=== PATIENT | female | born 1990 | race Caucasian/White ===

== ENCOUNTER → 2017-01-04 | Outpatient (CLI) | payer BC ==
--- NOTE | 2017-01-04 16:22 | DI ---
RIGHT WRIST, 01/04/2017 3:44 PM: Clinical History: Right wrist pain. Previous Exam: None at this facility. AP and lateral views are submitted. There is no acute soft tissue, osseous, or joint abnormality. Readin. Normal left wrist exam. 2. If symptoms persist at the affected site, then follow-up films are recommended in 7-10 days, sanket cially if there is a history of recent trauma to the area.
== END ==
LOC: MOB RAD 15:49
PROVIDERS: ATTEND Nurse Practitioner Family
DX: M25.531 Pain in right wrist (principal)
CPT/HCPCS: 73100

== ENCOUNTER → 2017-01-13 | Outpatient (CLI) | payer BC ==
[2017-01-13 11:33] LABS: HEMATOCRIT 40.7 % (37.0-47.0); HEMOGLOBIN 13.1 g/dL (12.0-16.0); MEAN CORPUSCULAR HEMOGLOBIN 26.8 PG (27-31); MEAN CORPUSCULAR HGB CONC 32.2 g/dL (33-37); MEAN CORPUSCULAR VOLUME 83.4 FL (81-99); MEAN PLATELET VOLUME 10.2 FL (7.4-12.2); RED BLOOD COUNT 4.88 10^6/uL (4.20-5.40)
[2017-01-13 11:44] LABS: BLOOD UREA NITROGEN 13 mg/dL (7-22); BUN/CREATININE RATIO 16.25 (6-20); CALCIUM 8.5 mg/dL (8.7-10.7); EST GLOMERULAR FILTRATION > 60 (>60 ml/min/1.73m(2)); SERUM ALBUMIN 3.9 g/dL (3.5-4.8)
== END ==
LOC: LAB 11:12
PROVIDERS: ATTEND Nurse Practitioner
DX: K51.90 Ulcerative colitis, unspecified, without complications (principal); K92.1 Melena; R10.84 Generalized abdominal pain; R11.0 Nausea
CPT/HCPCS: 36415; 80053; 85027; 87046; 87493

== ENCOUNTER → 2017-03-09 | Outpatient (CLI) | payer BC ==
--- NOTE | 2017-03-10 09:12 | DI ---
MRI UP EXTREMITY JNT W/O RINKU,03/09/2017 10:10 AM: Clinical History: Right wrist pain. Previous Exam: None at this facility. Findings: Multiplanar MR images are obtained through the right wrist without contrast. Bony alignment is anatomic. No fractures seen. Marrow signal is preserved. The extensor tendons are normal. The flexor tendons also appear normal. There is minimum prominence o f the median nerves within the carpal condyle. Is unremarkable. The carpal bones are within normal limits. There is some redundancy of the posterior scapholunate lig ament. Impression: 1. Possible mild inflammatory changes of the median nerve as it is slightly enlarged and edematous. C orrelate with any history of carpal tunnel syndrome. 2.Slightly widening of the scapholunate interval with some redundancy of the posterior scapholunate l igament most consistent with a prior tear.
== END ==
LOC: MRI 10:07
PROVIDERS: ATTEND Orthopaedic Surgery
DX: M25.531 Pain in right wrist (principal)
CPT/HCPCS: 73221

== ENCOUNTER 2017-04-18 11:23 | Day surgery (SDC) | payer BC ==
[~2017-04-18 11:23] MED LIST: LIDOCAINE W/ SODIUM BICARB 0.5 ML SYR ONE; Lactated Ringers 1,000 ML PRIMARY IV ONE; ceFAZolin Inj 2gm (Premix) 50 ML IV ONE
[2017-04-18 11:43] LABS: URINE SPECIFIC GRAVITY - MAN 1.028
[2017-04-18] MEDS ORDERED: LIDOCAINE 2%/ EPI 1:200,000 - 20 ML VIAL ONE (12:01)
[2017-04-18] MEDS ORDERED: MIDAZOLAM 5 MG/1 ML ONE (12:01)
[2017-04-18] MEDS ORDERED: MEPIVACAINE HCL/PF 20 MG/1 ML IV ONE (12:01)
[2017-04-18] MEDS ORDERED: fentaNYL Inj 100 MCG/2 ML VIAL ONE (12:01)
--- NOTE | 2017-04-18 12:19 | CRNA.PROCE ---
Nerve Block Documentation - - Safety Measures: Time Out Taken, Site Verified - - Type of Nerve Block Used: Right Infraclavicular Block Position for Nerve Block: Supine Moniters Used During Block: EKG, SPO2, NIBP Oxygen Sumpplented: Yes Sedation Used - Enter Amount in Comment Field: Midazolam (mg): Yes (2mg iv), Fentanyl (mcg): Yes (50mcg iv) Skin Prep Used: ChloroPrep Technique: Nerve Stimulator Nerve Block Needle Used: 80 mm ProBlk II Stimulation Hz: 1.0 Stimulation Staring mA: 1.2 Stimulation Ending mA: 0.4 Local Anesthetic - Enter Amt in Comment Field: 2 % Xylocaine with Epinephrine 1: 200,000 (mL): Yes (20ml), 2 % Mepivacaine (mL): Yes (20ml)
[2017-04-18] MEDS ORDERED: KETOROLAC 30 MG/1 ML VIAL ONE ×2 (12:41→14:13)
[2017-04-18] MEDS ORDERED: BUPivacaine Inj 0.25% PF - 10ml vial ONE (13:02)
[2017-04-18] MEDS ORDERED: NORMAL SALINE 10 ML SYRINGE FLUSH IVP PRN (14:34)
[2017-04-18] MEDS ORDERED: CALCIUM CARBONATE 500 MG (TUMS) CHEWABLE TABLET PO PRN (14:34)
[2017-04-18] MEDS ORDERED: HYDROmorphone 2 MG/1 ML IVP PRN (14:34)
[2017-04-18] MEDS ORDERED: IBUPROFEN 400 MG TABLET PO PRN (14:34)
[2017-04-18] MEDS ORDERED: oxyCODONE-ACETAMINOPHEN 5-325 TAB PO PRN (14:34)
[2017-04-18] MEDS ORDERED: BISACODYL 10 MG SUPPOSITORY RECTAL PRN (14:34)
[2017-04-18] MEDS ORDERED: BISACODYL 5 MG TABLET PO PRN (14:34)
[2017-04-18] MEDS ORDERED: Prochlorperazine Tab 10 MG TAB PO PRN (14:34)
[2017-04-18] MEDS ORDERED: ACETAMINOPHEN 325 MG TABLET PO PRN (14:34)
[2017-04-18] MEDS ORDERED: ONDANSETRON 4 MG/2 ML VIAL IVP PRN (14:34)
[2017-04-18] MEDS ORDERED: Ondansetron ODT Tab 8 MG TAB PO PRN (14:34)
[2017-04-18] MEDS ORDERED: MAG HYDROX/AL HYDROX/SIMETH 30 ML SUSP PO PRN (14:34)
[2017-04-18] MEDS ORDERED: diphenhydrAMINE 25 MG CAPSULE PO PRN (14:34)
[2017-04-18] MEDS ORDERED: Lactated Ringers 1,000 ML PRIMARY IV SCH (14:45)
[2017-04-18 15:24] VITALS: TEMP 98
[2017-04-18 15:27] VITALS: RESP 14
== END 2017-04-18 14:52 | disposition home or self-care (01) ==
LOC: SDSC 11:23
PROVIDERS: ATTEND Orthopaedic Surgery
DX: M65.4 Radial styloid tenosynovitis [de Quervain] (principal); M67.431 Ganglion, right wrist
CPT/HCPCS: 25000; 25111; 84703; J0670; J0690; J1885; J2250; J2704; J3010; S0020; J7120